=== PATIENT | male | born 1965 | race Caucasian/White ===

== ENCOUNTER 2021-07-18 08:04 | Inpatient (IN) | payer OTHER ==
[2021-07-10 11:35] VITALS: BMI 30.1
[2021-07-18] MEDS ORDERED: MIDAZOLAM HCL 2 MG/2 ML SINGLE DOSE VIAL ONE ×2 (08:42→11:11)
[2021-07-18] MEDS ORDERED: BUPIVACAINE HCL 50 ML ONE (08:43)
[2021-07-18] MEDS ORDERED: SODIUM CHLORIDE 0.9% P/F 10 ML VIAL IJ ONE (08:43)
[2021-07-18] MEDS ORDERED: BUPIVACAINE LIPOSOME/PF (EXPAREL) 266 MG/20 ML VIAL ONE (08:43)
[2021-07-18] MEDS ORDERED: CEFAZOLIN 2 GM in DEXTROSE 5%-WATER - 50 ML IVPB ONE (09:00)
[2021-07-18] MEDS ORDERED: CELECOXIB 200 MG CAPSULE PO ONE ×2 (09:00→10:00)
[2021-07-18] MEDS ORDERED: ONDANSETRON 4 MG/2 ML VIAL IVPUSH PRN (10:51)
[2021-07-18] MEDS ORDERED: MAG HYDROX/AL HYDROX/SIMETH 30 ML UNIT-DOSE CUP PO PRN (10:51)
[2021-07-18] MEDS ORDERED: MAGNESIUM HYDROX 2400MG/30ML ORAL SUSPENSION 30 ML CUP PO PRN (10:51)
[2021-07-18] MEDS ORDERED: LACTATED RINGERS SOLUTION 1,000 ML IV SCH (11:00)
[2021-07-18] MEDS ORDERED: PROPOFOL 20 ML ONE ×6 (11:25→13:15)
[2021-07-18] MEDS ORDERED: ACETAMINOPHEN 1000 MG/100 ML BAG IVPB ONE (14:28)
[2021-07-18] MEDS ORDERED: oxyCODONE HCL 5 MG TABLET PO PRN (14:28)
[2021-07-18] MEDS ORDERED: morphine SULFATE 4 MG/ML VIAL IVPUSH PRN (14:30)
[2021-07-18] MEDS ORDERED: ACETAMINOPHEN INJECTION 100 ML IVPB ONE (14:39)
[2021-07-18] MEDS: oxyCODONE HCL 5 MG TABLET PO PRN ×2 (16:07→19:56)
[2021-07-18] MEDS ORDERED: DEXTROSE 5%-WATER - 50 ML IVPB ONE (18:00)
[2021-07-18] MEDS ORDERED: ceFAZolin SODIUM 1 GM VIAL ONE (18:00)
[2021-07-18] MEDS: CEFAZOLIN 2 GM in DEXTROSE 5%-WATER - 50 ML IVPB SCH (18:07)
[2021-07-18] MEDS: GABAPENTIN 300 MG CAPSULE PO SCH (21:51)
[2021-07-18] MEDS: ASPIRIN COATED 81 MG TABLET.EC PO SCH (21:51)
[2021-07-18] MEDS: FAMOTIDINE 20 MG TABLET PO SCH (21:52)
[2021-07-18] MEDS: SENNOSIDES/DOCUSATE COMBO (SENNA PLUS) TABLET (UD) PO SCH (21:53)
[2021-07-18] MEDS: ACETAMINOPHEN 500 MG TABLET (FP) PO SCH (23:22)
[2021-07-19] MEDS ORDERED: ceFAZolin SODIUM 1 GM VIAL ONE (01:10)
[2021-07-19] MEDS ORDERED: DEXTROSE 5%-WATER - 50 ML IVPB ONE (01:11)
[2021-07-19] MEDS: oxyCODONE HCL 5 MG TABLET PO PRN ×2 (05:52→13:37)
[2021-07-19] MEDS: ACETAMINOPHEN 500 MG TABLET (FP) PO SCH ×2 (06:17→14:20)
[2021-07-19] MEDS: CEFAZOLIN 2 GM in DEXTROSE 5%-WATER - 50 ML IVPB SCH (06:23)
[2021-07-19 08:01] LABS: CALCIUM 9.3 mg/dl (8.5-10); CREATININE 1.1 mg/dl (0.55-1.3)
[2021-07-19 08:44] LABS: HEMATOCRIT 33.6 % (35.4-49); HEMOGLOBIN 10.9 GM/dL (11.7-16.9); MCH 29.3 pg (25.7-33.7); MCHC 32.3 g/dl (32.0-35.9); MEAN CELL VOLUME 90.7 fl (80-96); MEAN PLT VOLUME 9.9 fl (7.5-11.1); PLATELET COUNT 323 10^3/uL (134-434); RBC 3.71 M/mm3 (4.00-5.60); RDW 13.2 % (11.9-15.9)
[2021-07-19] MEDS: GABAPENTIN 300 MG CAPSULE PO SCH (09:26)
[2021-07-19] MEDS: ASPIRIN COATED 81 MG TABLET.EC PO SCH (09:26)
[2021-07-19] MEDS: FAMOTIDINE 20 MG TABLET PO SCH (09:26)
[2021-07-19] MEDS: SENNOSIDES/DOCUSATE COMBO (SENNA PLUS) TABLET (UD) PO SCH (09:28)
[2021-07-19] MEDS ORDERED: PATIENT'S OWN MEDICATION (NON-FORMULARY) (Hydrochlorothiazide [Hydrochlorothiazide] 12.5 M PO SCH (10:00)
[2021-07-19] MEDS ORDERED: HYDROCHLOROTHIAZIDE 12.5 MG CAPSULE (FP) PO SCH (10:00)
[2021-07-19] MEDS ORDERED: MULTIVITAMINS (DAILY MVI) TABLET (FP) PO SCH (10:00)
[2021-07-19] MEDS ORDERED: amLODIPine BESYLATE 10 MG TABLET (FP) PO SCH (10:00)
[2021-07-19] MEDS ORDERED: LISINOPRIL 20 MG TABLET PO SCH (10:00)
[2021-07-19] MEDS ORDERED: PATIENT'S OWN MEDICATION (NON-FORMULARY) (Potassium Chloride [Potassium Chloride] 20 MEQ T PO SCH (10:00)
[2021-07-19] MEDS ORDERED: PATIENT'S OWN MEDICATION (NON-FORMULARY) (Lisinopril [Lisinopril] 40 MG Tablet) PO SCH (10:00)
[2021-07-19] MEDS ORDERED: POTASSIUM CHLORIDE TABS 20 MEQ TABLET.ER (FP) PO SCH (10:00)
[2021-07-19 14:28] VITALS: BP 162/82; PULSE 97; TEMP 99.4
== END 2021-07-19 16:11 | disposition home or self-care (01) | DRG 302 ==
LOC: FASUSAT 08:04 → FM/S 08:31 → FASUSAT 18:09
PROVIDERS: ADMIT Orthopaedic Surgery; ATTEND Orthopaedic Surgery
PROC: 0SBD0ZX Excision of Left Knee Joint, Open Approach, Diagnostic (ICD-10-PCS; 2021-07-18)
PROC: 0SRD0J9 Replacement of Left Knee Joint with Synthetic Substitute, Cemented, Open Approach (ICD-10-PCS; principal; 2021-07-18 11:39)
DX: M17.12 Unilateral primary osteoarthritis, left knee (principal); M25.462 Effusion, left knee; M65.862 Other synovitis and tenosynovitis, left lower leg
CPT/HCPCS: 36415; 73560-TC-LT-FY; 80048; 85027; 88304-TC; 88305-TC; 88311-TC; 94760; 97010-GP; 97116-GP; 97162-GP